=== PATIENT | female | born 1940 | race Caucasian/White ===

== ENCOUNTER 2018-09-22 09:59 | Outpatient (CLI) | payer MEDICARE, OTHER ==
[~2018-09-22] VITALS: Ht 152.4 cm; Wt 45.4 kg
[~2018-09-22 09:59] MED LIST: BUDE10.2 INH; CALC-1051 PO; DOCU-28 PO; HYDR-3965 PO; MULT-1085 PO; SPIIN INH; VITC500T PO
[2018-09-22 10:30] LABS: TOTAL HEMOGLOBIN 13.4 G/dl (12.0-16.0)
[2018-09-22] MEDS ORDERED: albuterol 2.5 MG/3 ML nebule NEB ONE (10:32)
== END 2018-09-22 23:59 | disposition home or self-care (01) ==
LOC: RT 09:59
PROVIDERS: ATTEND Internal Medicine
DX: J44.9 Chronic obstructive pulmonary disease, unspecified (principal); R09.02 Hypoxemia; R06.09 Other forms of dyspnea; F17.210 Nicotine dependence, cigarettes, uncomplicated; Z88.5 Allergy status to narcotic agent
CPT/HCPCS: 85018; 94060; 94640; 94727; 94729

== ENCOUNTER 2019-07-10 17:51 | Emergency (ER) | payer MEDICARE, OTHER ==
[~2019-07-10] VITALS: Ht 147.3 cm; Wt 44.5 kg
[2019-07-10 19:36] VITALS: BP 131/71
== END 2019-07-10 19:40 | disposition home or self-care (01) ==
LOC: ER 17:52
DX: S00.03XA Contusion of scalp, initial encounter (principal); J44.9 Chronic obstructive pulmonary disease, unspecified; G89.29 Other chronic pain; Z98.890 Other specified postprocedural states; Z79.899 Other long term (current) drug therapy; W18.39XA Other fall on same level, initial encounter; Y93.01 Activity, walking, marching and hiking; Y92.89 Other specified places as the place of occurrence of the external cause; Y99.8 Other external cause status
CPT/HCPCS: 70450; 72125; 99284

== ENCOUNTER 2021-12-04 08:10 | Day surgery (SDC) | payer MEDICARE, OTHER ==
[~2021-12-04] VITALS: Ht 147.3 cm; Wt 40.0 kg
[~2021-12-04 08:10] MED LIST changes: +LIDOcaine Viscous 15ml cup ONE; +MIDAZolam 1 MG/ML 5ML VIAL ONE; +fentaNYL/PF 50MCG/1 ML 2ML syringe ONE
[2021-12-04 08:30] VITALS: BP 120/60
[2021-12-04] MEDS ORDERED: ATOR20TA PO (08:40)
[2021-12-04] MEDS ORDERED: ASPI-611 PO (08:41)
[2021-12-04 10:05] VITALS: BP 131/71
[2021-12-04 10:15] VITALS: BP 106/52
[2021-12-04 10:25] VITALS: BP 110/54
[2021-12-04 10:35] VITALS: BP 112/57
== END 2021-12-04 11:00 | disposition home or self-care (01) ==
LOC: GI LAB 08:10
PROVIDERS: ATTEND Internal Medicine Gastroenterology
DX: R10.10 Upper abdominal pain, unspecified (principal); D50.9 Iron deficiency anemia, unspecified; K44.9 Diaphragmatic hernia without obstruction or gangrene; K22.2 Esophageal obstruction; K29.50 Unspecified chronic gastritis without bleeding; B96.81 Helicobacter pylori [H. pylori] as the cause of diseases classified elsewhere; K29.80 Duodenitis without bleeding; K57.30 Diverticulosis of large intestine without perforation or abscess without bleeding; K62.1 Rectal polyp; J44.9 Chronic obstructive pulmonary disease, unspecified; Z87.891 Personal history of nicotine dependence; Z79.899 Other long term (current) drug therapy
CPT/HCPCS: 43239; 45380; 88305; 88342; 99153; G0500; J2250; J3010; J7040; Z7512; 99152; A4620

== ENCOUNTER 2022-01-24 07:31 | Emergency (ER) | payer MEDICARE, OTHER ==
[~2022-01-24] VITALS: Ht 147.3 cm; Wt 36.8 kg
[~2022-01-24 07:31] MED LIST changes: +ASPI-611 PO; +ATOR20TA PO; -DOCU-28 PO; -HYDR-3965 PO; -LIDOcaine Viscous 15ml cup ONE; -MIDAZolam 1 MG/ML 5ML VIAL ONE; -fentaNYL/PF 50MCG/1 ML 2ML syringe ONE
[2022-01-24 08:54] LABS: BASOPHILS # (AUTO) 0.1 X10'3 (0-0.2); BASOPHILS % (AUTO) 0.8 % (0-1); EOSINOPHILS # (AUTO) 0.1 X10'3 (0-0.9); EOSINOPHILS % (AUTO) 1.3 % (0-6); HEMATOCRIT 30.7 % (35.0-45.0); HEMOGLOBIN 10.3 g/dl (12.0-16.0); LYMPHOCYTES # (AUTO) 0.8 X10'3 (1.1-4.8); LYMPHOCYTES % (AUTO) 8.5 % (21-51); MEAN CORPUSCULAR HEMOGLOBIN 32.8 PG (27.0-31.0); MEAN CORPUSCULAR HGB CONC 33.4 g/dL (33.0-36.5); MEAN CORPUSCULAR VOLUME 98.2 FL (78-98); MEAN PLATELET VOLUME 8.5 FL (7.4-10.4); MONOCYTES # (AUTO) 0.6 X10'3 (0-0.9); MONOCYTES % (AUTO) 6.6 % (2-12); NEUTROPHILS # (AUTO) 7.9 X10'3 (1.8-7.7); NEUTROPHILS % (AUTO) 82.8 % (42-75); PLATELET COUNT 172 X10'3 (140-440); RED BLOOD COUNT 3.13 X10'6 (4.20-5.60); RED CELL DISTRIBUTION WIDTH 15.1 % (11.5-14.5); WHITE BLOOD COUNT 9.5 X10'3 (4.5-11.0)
[2022-01-24 09:06] VITALS: BP 126/57
[2022-01-24 09:19] LABS: ALANINE AMINOTRANSFERASE 19 U/L (12-78); ALBUMIN 3.7 G/DL (3.4-5.0); ALBUMIN/GLOBULIN RATIO 1.1 (1.1-1.5); ALKALINE PHOSPHATASE 59 IU/L (46-116); ANION GAP 8 (8-16); ASPARTATE AMINO TRANSFERASE 21 U/L (10-37); BILIRUBIN,TOTAL 0.7 MG/DL (0.1-1.0); BLOOD UREA NITROGEN 21 MG/DL (7-18); BUN/CREATININE RATIO 23.6 (6.6-38.0); C-REACTIVE PROTEIN 0.54 MG/DL (0.0-0.5); CALCIUM 8.9 MG/DL (8.5-10.1); CHLORIDE 109 MMOL/L (99-107); CREATININE 0.89 MG/DL (0.40-0.90); GLUCOSE 96 MG/DL (70-104); POTASSIUM 3.4 MMOL/L (3.5-5.1); SODIUM 148 MMOL/L (135-145); TOTAL CARBON DIOXIDE 31.3 MMOL/L (24-32); eGFR 61 ML/MIN
== END 2022-01-24 10:32 | disposition home or self-care (01) ==
LOC: ER 07:32
DX: M25.512 Pain in left shoulder (principal); J44.9 Chronic obstructive pulmonary disease, unspecified; G89.29 Other chronic pain; Z98.890 Other specified postprocedural states; Z79.82 Long term (current) use of aspirin; Z79.899 Other long term (current) drug therapy; Z90.49 Acquired absence of other specified parts of digestive tract
CPT/HCPCS: 36415; 73030; 80053; 84145; 85025; 86140; 99284

== ENCOUNTER 2022-02-25 08:19 | Inpatient (IN) | payer MEDICARE, OTHER ==
[~2022-02-25] VITALS: Ht 147.3 cm; Wt 39.0 kg
[2022-02-25] VITALS (11 sets, daily range): BP systolic 86–120; BP diastolic 35–82
[2022-02-25 09:03] LABS: BASOPHILS % (AUTO) 0.2 % (0-1); EOSINOPHILS % (AUTO) 0.2 % (0-6); HEMATOCRIT 30.9 % (35.0-45.0); HEMOGLOBIN 10.2 g/dl (12.0-16.0); LYMPHOCYTES # (AUTO) 0.3 X10'3 (1.1-4.8); MEAN CORPUSCULAR HEMOGLOBIN 32.2 PG (27.0-31.0); MEAN CORPUSCULAR HGB CONC 32.9 g/dL (33.0-36.5); MEAN CORPUSCULAR VOLUME 97.7 FL (78-98); MEAN PLATELET VOLUME 8.6 FL (7.4-10.4); MONOCYTES # (AUTO) 0.9 X10'3 (0-0.9); MONOCYTES % (AUTO) 5.5 % (2-12); NEUTROPHILS # (AUTO) 14.6 X10'3 (1.8-7.7); NEUTROPHILS % (AUTO) 92.1 % (42-75); PLATELET COUNT 124 X10'3 (140-440); RED BLOOD COUNT 3.16 X10'6 (4.20-5.60); RED CELL DISTRIBUTION WIDTH 14.7 % (11.5-14.5); WHITE BLOOD COUNT 15.9 X10'3 (4.5-11.0)
[2022-02-25 09:13] LABS: ALANINE AMINOTRANSFERASE 48 U/L (12-78); ALBUMIN 3.3 G/DL (3.4-5.0); ALBUMIN/GLOBULIN RATIO 0.8 (1.1-1.5); ALKALINE PHOSPHATASE 120 IU/L (46-116); ASPARTATE AMINO TRANSFERASE 74 U/L (10-37); BILIRUBIN,TOTAL 1.1 MG/DL (0.1-1.0); BLOOD UREA NITROGEN 44 MG/DL (7-18); BUN/CREATININE RATIO 23.3 (6.6-38.0); CALCIUM 9.8 MG/DL (8.5-10.1); CREATININE 1.89 MG/DL (0.40-0.90); GLUCOSE 116 MG/DL (70-104); LIPASE 131 U/L (73-393); TOTAL CARBON DIOXIDE 28.5 MMOL/L (24-32); TOTAL PROTEIN 7.3 G/DL (6.4-8.2); eGFR 26 ML/MIN
[2022-02-25 09:19] LABS: ANION GAP 8 (8-16); CHLORIDE 105 MMOL/L (99-107); POTASSIUM 3.5 MMOL/L (3.5-5.1); SODIUM 141 MMOL/L (135-145)
[2022-02-25 10:27] LABS: CLARITY,URINE CLOUDY (Clear); COLOR,URINE YELLOW (Yellow); GLUCOSE, URINE NEGATIVE (Neg); KETONES,URINE TRACE mg/dl (Neg); LEUKOCYTE ESTERASE ,URINE LARGE (Neg); NITRITES, URINE NEGATIVE (Neg); OCCULT BLOOD,URINE MODERATE (Neg); PH,URINE 5.5 (4.8-8.0); PROTEIN,URINE 100 mg/dl (Neg); UA COLLECTION TYPE CLN CATCH MIDSTREAM; UROBILINOGEN,URINE 0.2 E.U/dL (0.2-1.0)
[2022-02-25 10:32] LABS: WBC,URINE TNTC /HPF (0-4)
[2022-02-25 10:33] LABS: BACTERIA,URINE 4+ /HPF (Neg); MUCUS STRANDS NONE SEEN /LPF (Neg); SQUAMOUS EPITHELIAL CELL,UR FEW /LPF (FEW)
[2022-02-25 11:10] LABS: BASOPHILS % (AUTO) 0.3 % (0-1); EOSINOPHILS % (AUTO) 0.1 % (0-6); HEMATOCRIT 28.1 % (35.0-45.0); HEMOGLOBIN 9.2 g/dl (12.0-16.0); LYMPHOCYTES # (AUTO) 0.3 X10'3 (1.1-4.8); LYMPHOCYTES % (AUTO) 2.3 % (21-51); MEAN CORPUSCULAR HEMOGLOBIN 32.2 PG (27.0-31.0); MEAN CORPUSCULAR HGB CONC 32.9 g/dL (33.0-36.5); MEAN PLATELET VOLUME 8.5 FL (7.4-10.4); MONOCYTES # (AUTO) 0.7 X10'3 (0-0.9); MONOCYTES % (AUTO) 5.1 % (2-12); NEUTROPHILS % (AUTO) 92.2 % (42-75); PLATELET COUNT 118 X10'3 (140-440); RED BLOOD COUNT 2.87 X10'6 (4.20-5.60); RED CELL DISTRIBUTION WIDTH 14.6 % (11.5-14.5)
[2022-02-25] MEDS ORDERED: cefTRIAXone 1g/NS 100ml IVPB 100 ML IV ONE (13:15)
[2022-02-25] MEDS ORDERED: POTASSIUM BICARB 20meq eff tab 20 MEQ TABLET.EFF PO PRN ×2 (14:10)
[2022-02-25] MEDS ORDERED: acetaminophen 325mg tablet PO PRN ×2 (14:10)
[2022-02-25] MEDS ORDERED: magnesium hydroxide 30ml (MOM) UD suspension PO PRN (14:10)
[2022-02-25] MEDS ORDERED: morphine 2 MG/ML inj. syringe IV PRN ×2 (14:10→16:10)
[2022-02-25] MEDS ORDERED: potassium CL 10mEq/100ml bag 100 ML IV PRN (14:10)
[2022-02-25] MEDS ORDERED: magnesium 2GM in 50ml NS 50 ML IV PRN (14:10)
[2022-02-25] MEDS ORDERED: magnesium 4gm in 100ml NS 100 ML IV PRN (14:10)
[2022-02-25] MEDS ORDERED: magnesium Cl slow-release 64mg tablet PO PRN (14:10)
[2022-02-25] MEDS ORDERED: ondansetron/PF 4mg/2ml inj IV PRN ×2 (14:10→16:10)
[2022-02-25] MEDS ORDERED: HYDROcodone/acetaminophen 5mg/325mg tablet PO PRN (14:10)
[2022-02-25] MEDS: normal saline 1000ml 1,000 ML IV SCH ×2 (14:56→23:44)
[2022-02-25] MEDS ORDERED: ATOR10TA70 PO (15:32)
[2022-02-25] MEDS ORDERED: FURO20TA4 PO (15:33)
[2022-02-25] MEDS ORDERED: FERR325T29 PO (15:35)
[2022-02-25] MEDS ORDERED: TIOT18CA3 INH (15:35)
[2022-02-25] MEDS ORDERED: iohexol 300 MG/1 ML 50ml polymer ONE (15:56)
[2022-02-25] MEDS ORDERED: ringers solution, lacted 1,000 ML IV ONE (16:10)
[2022-02-25] MEDS ORDERED: ringers solution, lacted 1,000 ML IV SCH (16:10)
[2022-02-25] MEDS ORDERED: labetalol 20mg/4ml (5mg/ml) syringe IV PRN (16:10)
[2022-02-25] MEDS ORDERED: hydrALAZINE 20mg/ml inj. IV PRN (16:10)
[2022-02-25] MEDS ORDERED: morphine 4 MG/ML inj SYRINge IV PRN (16:10)
[2022-02-25] MEDS ORDERED: fentaNYL/PF 50MCG/1 ML 2ML syringe IV PRN ×2 (16:10)
[2022-02-25] MEDS ORDERED: albuterol 2.5 MG/3 ML nebule NEB ONE (16:10)
[2022-02-25] MEDS ORDERED: etomidate 2mg/ml inj. ONE (17:13)
[2022-02-25] MEDS ORDERED: ondansetron/PF 4mg/2ml inj ONE (17:13)
[2022-02-25] MEDS ORDERED: dexamethasone sod phosphate 4mg/ml inj. ONE (17:13)
[2022-02-25] MEDS ORDERED: sevoflurane 250ml liquid IH ONE (17:38)
[2022-02-25] MEDS ORDERED: morphine 10mg/ml inj. ONE (18:21)
--- NOTE | 2022-02-25 18:41 | NUR ---
Received from OR via BED, accompanied by Anesthesiologist DR ENCARNACION and report given by Anesthesiologist. VSS. SLEEPING, RESPONSE TO VOICE COMMANDS. NO COMPLAINTS OF PAIN. NORY FOUNTAIN LEFT UE. SCD'S BILAT. NO DRAINAGE NOTED FROM SURG SITE Addendum: 02/25/22 at 1855 by Vanessa Rios RN Amended: Links added.
--- NOTE | 2022-02-25 19:11 | NUR ---
PT ALERT AND ORIENTED. HOLDING CONVERSATIONS WITH STAFF. IV PATENT LR 40MLS ON PUMP. DR MAE CALLING TRAINING PERSONNEL SUPERVISOR FOR CONSULT. FC WITH 50MLS DARK CLOUDY URINE PRESENT. [facility]. REPORT TO BJ RN I ICU WITH ALL QUESTIONS ANSWERED. TRANSFERRED TO ICU VIA BED WITH MONITOR [address] MAE Addendum: 02/25/22 at 7 by Vanessa Rios RN Amended: Links added.
[2022-02-25 20:00] LABS: ABG BASE EXCESS 1.7 mmol/L (-2.0-2.0); ABG OXYGEN SATURATION 89.2 % (94-97); ABG PCO2 (T) 44.6 mmHg (32.0-45.0); ABG PO2 (T) 56.5 mmHg (75.0-100.0); ALLEN'S TEST POSITIVE; FCOHb 0.4 % (0.0-3.9); FMetHb 0.2 % (0.0-1.5); FO2Hb 88.7 % (94-97); PATIENT TEMPERATURE 36.4; TOTAL HEMOGLOBIN 9.5 G/dl (12.0-16.0)
[2022-02-25] MEDS ORDERED: heparin, porcine 5000 units/ml vial SQ SCH (20:00)
[2022-02-25] MEDS: K and/or MAG REPLACEMENT MC SCH (20:00)
[2022-02-25] MEDS ORDERED: temazepam 15mg capsule PO PRN (21:00)
--- NOTE | 2022-02-25 21:09 | NUR ---
1944 received an 81 year old female admitted with Pyelonephritis, SAGE, COPD who underwent rt ureteral stent. Wells cath in place, draining thick turbid manrique urine, Pt denies pain and discomfort. Pt able to speak in 4-5 word sentences with minimal shortness of breath. SpO2 fluctuating mid 80-90's on 4 L N/C, ABG ordered. Spoke to Dr Lopez regarding pts ABG results and blood pressure with a MAP less then 60, new orders to turn O2 up to 5 Liters, Ok for SpO2 88 to 94, Ok for MAP greater then 50% as he figures the pt has a normal lower blood pressure and due to her COPD with home O2 she most likely has a SpO2 in the upper 80's. no further orders at this time. Pt's SPo2 greater then 88 % with the increase of O2.
[2022-02-25] MEDS: ipratropium 0.5 MG/2.5ML nebule IH SCH (21:11)
[2022-02-26] VITALS (18 sets, daily range): BP systolic 98–146; BP diastolic 42–74
--- NOTE | 2022-02-26 00:14 | NUR ---
PTs urine is less turbid, very little sediment at this time, pt denies pain or discomfort,
[2022-02-26] MEDS: ipratropium 0.5 MG/2.5ML nebule IH SCH ×2 (02:55→07:58)
[2022-02-26] MEDS: albuterol 2.5 MG/3 ML nebule NEB PRN ×2 (02:55→07:59)
[2022-02-26 04:23] LABS: BASOPHILS % (AUTO) 0.5 % (0-1); EOSINOPHILS % (AUTO) 0 % (0-6); HEMATOCRIT 26.4 % (35.0-45.0); HEMOGLOBIN 8.6 g/dl (12.0-16.0); LYMPHOCYTES # (AUTO) 0.4 X10'3 (1.1-4.8); LYMPHOCYTES % (AUTO) 4.9 % (21-51); MEAN CORPUSCULAR HEMOGLOBIN 32.7 PG (27.0-31.0); MEAN CORPUSCULAR HGB CONC 32.7 g/dL (33.0-36.5); MEAN PLATELET VOLUME 8.9 FL (7.4-10.4); MONOCYTES # (AUTO) 0.1 X10'3 (0-0.9); MONOCYTES % (AUTO) 1.7 % (2-12); NEUTROPHILS # (AUTO) 6.9 X10'3 (1.8-7.7); NEUTROPHILS % (AUTO) 92.9 % (42-75); PLATELET COUNT 124 X10'3 (140-440); RED BLOOD COUNT 2.64 X10'6 (4.20-5.60); RED CELL DISTRIBUTION WIDTH 15.1 % (11.5-14.5); WHITE BLOOD COUNT 7.5 X10'3 (4.5-11.0)
[2022-02-26 04:35] LABS: APTT 25 SECONDS (22-32)
[2022-02-26 04:39] LABS: ALANINE AMINOTRANSFERASE 29 U/L (12-78); ALBUMIN 2.4 G/DL (3.4-5.0); ALBUMIN/GLOBULIN RATIO 0.7 (1.1-1.5); ALKALINE PHOSPHATASE 88 IU/L (46-116); ANION GAP 10 (8-16); ASPARTATE AMINO TRANSFERASE 28 U/L (10-37); BILIRUBIN,TOTAL 0.3 MG/DL (0.1-1.0); BLOOD UREA NITROGEN 45 MG/DL (7-18); BUN/CREATININE RATIO 31.9 (6.6-38.0); CALCIUM 8.5 MG/DL (8.5-10.1); CHLORIDE 110 MMOL/L (99-107); CREATININE 1.41 MG/DL (0.40-0.90); GLUCOSE 131 MG/DL (70-104); MAGNESIUM 1.9 MG/DL (1.5-2.4); PHOSPHORUS 4.9 MG/DL (2.3-4.5); POTASSIUM 4.3 MMOL/L (3.5-5.1); SODIUM 145 MMOL/L (135-145); TOTAL CARBON DIOXIDE 24.8 MMOL/L (24-32); TOTAL PROTEIN 5.8 G/DL (6.4-8.2); eGFR 36 ML/MIN
--- NOTE | 2022-02-26 06:05 | NUR ---
no changes in status noted report given to rec rn plan of care reviewed
[2022-02-26] MEDS: atorvastatin 10mg tablet PO SCH (07:27)
[2022-02-26] MEDS: CefTRIAXone 2gm/NS 100ml IVPB 100 ML IV SCH (07:27)
[2022-02-26] MEDS: normal saline 1000ml 1,000 ML IV SCH ×2 (07:32→20:32)
[2022-02-26] MEDS: K and/or MAG REPLACEMENT MC SCH ×2 (08:02→19:59)
--- NOTE | 2022-02-26 12:00 | NUR ---
Initial: Pt admit for sepsis secondary to UTI with possible obstructing pyelonephritis and right ureteral stones. Pt POD #1 s/p cystoscopy with right ureteral stent placement. Noted pt with a low BMI using scaled wt of 86 lbs. Pt and friend seen at bedside. Pt reports UBW over the last year is 86 lbs though pt with gradual wt loss prior to the past year. Pt reports eating really well [employer] and states she drinks Ensure at home though declines ONS at this time. Pt endorses a good appetite and denies food allergies or difficulty chewing/swallowing. Pt provided with ONS coupons and RD contact information and encouraged to reach out if needed. D/w dietary to send diet cola BIDLD per RN request per pt preference. LBM 02/25. Will continue to follow closely and make recommendations as appropriate. Recommendations: 1) Continue regular diet 2) Monitor need for ONS/additional protein; pt likes Ensure though declines at this time 3) Diet cola BIDLD 4) Bowel care PRN 5) Weekly scaled weights Addendum: 02/26/22 at [address] Amended: Links added.
[2022-02-26] MEDS: ipratropium/albuterol 3ml nebule NEB SCH ×2 (15:49→20:19)
--- NOTE | 2022-02-26 19:30 | NUR ---
Report called to receiving nurse in PCU to [id number]. Transferred via Wheelchair Belongings went with patient. Special Issues communicated to receiving nurse.
[2022-02-26] MEDS: heparin, porcine 5000 units/ml vial SQ SCH (20:25)
--- NOTE | 2022-02-26 22:00 | NUR ---
Patient hesitant on taking heparin sub Q, states she wants to speak with Dr regarding this med first. RN already provided purpose of med, side effects, and how administered. Patient verbalizes understanding but still unsure. RN informed patient she has the right to refuse, we can make sure patient uses SCDs and the dr can speak with patient regarding the medication tomorrow. Patient in agreement. SCDs applied, patient tolerating well.
--- NOTE | 2022-02-26 22:41 | NUR ---
RN received phone call from Dr Coronado. Apparently patients family/friend called his emergency after hours number with questions regarding the sub q heparin injection. Per Dr Coronado he informed family that patient can refuse blood thinner, RN informed him patient wearing SCDs and plan was for her to speak with Dr about heparin tomorrow. Dr Coronado agreed that prescribing Dr would be best to speak with patient and family. RN spoke with patient letting her know Dr Coronado called and aware of heparin situation and that prescribing doctor can follow up tomorrow. Patient verbalizes understanding.
[2022-02-27 02:00] VITALS: BP 111/44
[2022-02-27] MEDS: ipratropium/albuterol 3ml nebule NEB SCH ×2 (02:40→08:41)
[2022-02-27 05:00] LABS: BASOPHILS % (AUTO) 0.4 % (0-1); EOSINOPHILS # (AUTO) 0.1 X10'3 (0-0.9); EOSINOPHILS % (AUTO) 0.6 % (0-6); HEMATOCRIT 26.8 % (35.0-45.0); HEMOGLOBIN 8.9 g/dl (12.0-16.0); LYMPHOCYTES # (AUTO) 0.6 X10'3 (1.1-4.8); LYMPHOCYTES % (AUTO) 5.8 % (21-51); MEAN CORPUSCULAR HEMOGLOBIN 33.2 PG (27.0-31.0); MEAN CORPUSCULAR HGB CONC 33.3 g/dL (33.0-36.5); MEAN CORPUSCULAR VOLUME 99.7 FL (78-98); MEAN PLATELET VOLUME 8.2 FL (7.4-10.4); MONOCYTES # (AUTO) 0.9 X10'3 (0-0.9); MONOCYTES % (AUTO) 8.1 % (2-12); NEUTROPHILS # (AUTO) 9.3 X10'3 (1.8-7.7); NEUTROPHILS % (AUTO) 85.1 % (42-75); PLATELET COUNT 158 X10'3 (140-440); RED BLOOD COUNT 2.68 X10'6 (4.20-5.60); RED CELL DISTRIBUTION WIDTH 14.5 % (11.5-14.5); WHITE BLOOD COUNT 10.9 X10'3 (4.5-11.0)
[2022-02-27 05:16] LABS: APTT 25 SECONDS (22-32)
[2022-02-27 05:21] LABS: ALANINE AMINOTRANSFERASE 27 U/L (12-78); ALBUMIN 2.5 G/DL (3.4-5.0); ALBUMIN/GLOBULIN RATIO 0.8 (1.1-1.5); ALKALINE PHOSPHATASE 77 IU/L (46-116); ANION GAP 7 (8-16); ASPARTATE AMINO TRANSFERASE 14 U/L (10-37); BILIRUBIN,TOTAL 0.3 MG/DL (0.1-1.0); BLOOD UREA NITROGEN 46 MG/DL (7-18); CALCIUM 7.7 MG/DL (8.5-10.1); CHLORIDE 114 MMOL/L (99-107); CREATININE 1.18 MG/DL (0.40-0.90); GLUCOSE 108 MG/DL (70-104); MAGNESIUM 1.8 MG/DL (1.5-2.4); PHOSPHORUS 2.8 MG/DL (2.3-4.5); POTASSIUM 3.3 MMOL/L (3.5-5.1); SODIUM 146 MMOL/L (135-145); TOTAL CARBON DIOXIDE 25.5 MMOL/L (24-32); TOTAL PROTEIN 5.8 G/DL (6.4-8.2); eGFR 44 ML/MIN
[2022-02-27 06:00] VITALS: BP 123/49
[2022-02-27] MEDS: normal saline 1000ml 1,000 ML IV SCH (06:10)
--- NOTE | 2022-02-27 06:35 | NUR ---
Patient in room PCU 3013. I have received report from Nazia BENTLEY and had the opportunity to ask questions and assume patient care.
[2022-02-27] MEDS: heparin, porcine 5000 units/ml vial SQ SCH (08:00)
[2022-02-27] MEDS: K and/or MAG REPLACEMENT MC SCH (08:00)
[2022-02-27] MEDS: atorvastatin 10mg tablet PO SCH (08:02)
[2022-02-27] MEDS: CefTRIAXone 2gm/NS 100ml IVPB 100 ML IV SCH (08:03)
[2022-02-27] MEDS ORDERED: LACT1CAP26 PO (11:10)
[2022-02-27] MEDS ORDERED: FLO0.4C PO (11:10)
[2022-02-27] MEDS ORDERED: CEFD300C3 PO (11:10)
--- NOTE | 2022-02-27 13:43 | NUR ---
Patient stable for discharge per Dr. Perales's orders. All discharge instructions reviewed with patient and all questions answered. PIV discontinued, cannula intact. Tele discontinued. All belongings collected and sent with patient. Home O2 brought in by friend, wheeled to lobby via student nurse and picked up by friend.
== END 2022-02-27 12:46 | disposition home health service (06) | DRG 853 ==
LOC: ER 08:20 → ED HOLD 14:16 → CICU 2S 19:24 → PCU 3S 02-26 19:40
PROVIDERS: ADMIT Internal Medicine; ATTEND Internal Medicine
PROC: 0T768DZ Dilation of Right Ureter with Intraluminal Device, Via Natural or Artificial Opening Endoscopic (ICD-10-PCS; principal; 2022-02-25 17:38)
DX: A41.9 Sepsis, unspecified organism (principal); N17.0 Acute kidney failure with tubular necrosis; N20.2 Calculus of kidney with calculus of ureter; N13.6 Pyonephrosis; G89.29 Other chronic pain; M54.9 Dorsalgia, unspecified; J44.9 Chronic obstructive pulmonary disease, unspecified; R65.20 Severe sepsis without septic shock; I25.10 Atherosclerotic heart disease of native coronary artery without angina pectoris; F41.9 Anxiety disorder, unspecified; I50.9 Heart failure, unspecified; M19.90 Unspecified osteoarthritis, unspecified site; Z87.891 Personal history of nicotine dependence; Z87.442 Personal history of urinary calculi; Z79.899 Other long term (current) drug therapy; Z79.82 Long term (current) use of aspirin
CPT/HCPCS: 36415; 36600; 71045; 74176; 76000; 80053; 81001; 82803; 83605; 83690; 83735; 84100; 85018; 85025; 85610; 85730; 87040; 87077; 87081; 87088; 87186; 87635; 93005; 94640; 94760; 96365; 99285; A4338; A4618; C1769; C2617; G0378; J0696; J1100; J2274; J2405; J3490; J7030; J7120; Q9967

== ENCOUNTER 2022-05-30 08:24 | Outpatient (CLI) | payer MEDICARE, OTHER ==
[~2022-05-30] VITALS: Ht 172.7 cm; Wt 39.0 kg
[~2022-05-30 08:24] MED LIST changes: +ATOR10TA70 PO; -ATOR20TA PO; -BUDE10.2 INH; +FERR325T29 PO; +FURO20TA4 PO; +LACT1CAP26 PO; +TIOT18CA3 INH
[2022-05-30] MEDS ORDERED: albuterol 2.5 MG/3 ML nebule NEB PRN (09:25)
== END 2022-05-30 23:59 | disposition home or self-care (01) ==
LOC: RT 08:24
PROVIDERS: ATTEND Urology
DX: R94.2 Abnormal results of pulmonary function studies (principal); J98.4 Other disorders of lung; J44.9 Chronic obstructive pulmonary disease, unspecified; Z87.891 Personal history of nicotine dependence; Z79.899 Other long term (current) drug therapy
CPT/HCPCS: 94060; 94727; 94729; 94760